=== PATIENT | male | born 1940 | race Caucasian/White ===

== ENCOUNTER 2020-03-31 13:23 | Inpatient (IN) | payer OTHER, MEDICARE, SELFPAY ==
[2020-03-31] VITALS (11 sets, daily range): BP systolic 76–123; BP diastolic 44–66; PULSE 69–90; RESP 15–32; TEMP 36.3–36.8; O2SAT 90–98; BMI 23.7
--- NOTE | 2020-03-31 13:34 | XRR_ITS ---
PROCEDURE INFORMATION: Exam: XR Chest, 1 View Exam date and time: 03/31/2020 1:36 PM Age: 79 years old Clinical indication: Shortness of breath; Dyspnea TECHNIQUE: Imaging protocol: XR of the chest Views: 1 view. COMPARISON: No relevant prior studies available. FINDINGS: Lungs: At least bibasilar compressive atelectasis. Basilar pneumonia cannot be excluded nor can a lung mass. No central pulmonary vascular congestion. The upper lung zones are clear. Pleural space: Asymmetric pleural effusions, larger on the left. Heart/Mediastinum: The cardiac silhouette is partially silhouetted out, but the heart is felt not to be enlarged. Vasculature: The thoracic aorta is tortuous and/or ectatic. Bones/joints: Multilevel disc degeneration in the thoracic spine. Bilateral glenohumeral and acromioclavicular joint degeneration. Suspect chronic right rotator cuff tear. XR/XR chest 1V portable [id number] IMPRESSION: Asymmetric pleural effusions with at least bibasilar compressive atelectasis.
--- NOTE | 2020-03-31 13:34 | ECG_ITS ---
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
--- NOTE | 2020-03-31 13:44 | W.ED.SOB ---
HPI - SOB/Dyspnea General: Chief Complaint: Shortness of Breath/Dyspnea Stated Complaint: BP 80/40, Low O2 Time Seen by Provider: 03/31/20 13:24 History of Present Illness: HPI Narrative: Patient is a 79-year-old male who comes in with chief complaint of shortness of breath. He said he is been feeling like this all summer. It got this bad over the past 2 weeks. He is also had swelling in his legs for about 2 weeks. He denies chest pain. He does get lightheaded and fatigued when he moves around. He cannot lay flat at night to sleep. He has been told that he had CHF in the past. He takes Lasix but says it does not make him pee like he normally should. He denies fever but says he has a chronic cough because he likes cigarettes When family arrived I got more history. The patient had gone to the ER at [place] on Thursday because of the same symptoms. Apparently at that time he was diagnosed with A. fib and put on apixaban and Cardizem. His Lasix dose was increased. His family member said he looked just as bad when he came out as when he went in. He had an appointment with his primary care doctor on Thursday and they did not do anything either. His family is concerned that he continues to get worse in terms of weakness and difficulty breathing. That is why they brought him into the ER today. MD elicited complaint: shortness of breath Pertinent past history: COPD and congestive heart failure Associated symptoms: Reports orthopnea; Deny abdominal pain, chest pain, fever(s), nausea or vomiting Review of Systems General: Reports: 10 or more systems reviewed and unremarkable except in HPI and below Const: Denies: fever(s), chills, fatigue or malaise Eyes: Denies: change in vision ENMT: Denies: odynophagia Card: Reports: swelling of feet/ankles and orthopnea; Denies: chest pain Resp: Reports: dyspnea; Denies: productive cough or non-productive cough GI: Denies: abdominal pain, nausea or vomiting : Denies: flank pain Musc: Denies: neck pain or back pain Skin/Breast: Denies: rash Neuro: Denies: headache(s), numbness in extremities or weakness in extremities Jason/Lymph: Denies: easy bruising or easy bleeding PFSH ED PFSH: Medical History (Updated 04/02/20 @ 15:59 by Mark Raymond MD) Atrial fibrillation BPH (benign prostatic hyperplasia) Congestive heart failure COPD (chronic obstructive pulmonary disease) Hypertension Surgical History (Updated 03/31/20 @ 17:41 by Mark Raymond MD) No pertinent past surgical history Family History (Updated 03/31/20 @ 17:42 by Mark Raymond MD) Mother Stroke Father Old age Social History (Updated 03/31/20 @ 17:42 by Mark Raymond MD) Smoking and tobacco status: current every day smoker Alcohol intake: never Substance/Drug Use: never Physical Exam Const: COMMON NORMALS: patient oriented x3, no limitations and alert GENERAL APPEARANCE: cooperative HENMT: HEAD & SCALP: normal to inspection FACE & SINUS: normal facial exam Eye: GENERAL EYE: appearance normal, both eyes and all related structures Neck/C-Spine: COMMON NORMALS: supple, no meningeal signs and no JVD Chest: COMMONS NORMALS: normal inspection of the chest Resp: EFFORT & INSPECTION: Yes tachypneic, Yes respiratory distress and Yes uses accessory muscles AUSCULTATION: rales and rhonchi Cardio: COMMON NORMALS: no JVD and No murmurs present (Cardio) RHYTHM: abnormal rhythm irregularly irregular GI: COMMON NORMALS: Normal to inspection, nondistended, normoactive bowel sounds present, Soft to palpation and non-tender INSPECTION: Yes normal to inspection AUSCULTATION: Yes normoactive bowel sounds PALPATION: Yes Soft to palpation Back/Pelvis: COMMON NORMALS: thoracic and lumbar spine normal to inspection Extremity: NARRATIVE EXTREMITY EXAM: 3+ pitting edema from the mid calves down bilaterally Neuro: COMMON NORMALS: patient oriented x3, moves all extremities, no focal motor deficits and no sensory deficits noted SENSORIUM/ORIENTATION: Yes alert MENINGEAL SIGNS: Yes no meningeal signs Psych: COMMON NORMALS: mental status grossly normal, cooperative and normal affect Skin: COMMON NORMALS: no rashes or lesions noted and turgor normal GENERAL SKIN EXAM: no rashes or lesions noted and turgor normal Course ED course: Patient will be admitted for worsening heart failure. He is also hypotensive and this limited the diuresis that could be done initially. Actually gave him some fluids and some calcium to try to bring his blood pressure up. That did improve and his blood pressure was around 110 at the time of admission. An echo was ordered as well. He will be admitted for further management as an inpatient. Vital Signs: Vital signs: Vital Signs Temperature 97.4 F L 04/02/20 23:16 Pulse Rate 78 04/02/20 23:16 Respiratory Rate 23 H 04/02/20 23:16 Blood Pressure 93/61 04/02/20 23:16 Pulse Oximetry 92 04/02/20 23:16 MDM - SOB/Dyspnea Lab Data: Labs: Lab Results 03/31/20 03/31/20 03/31/20 Range/Units 13:38 13:38 13:38 WBC 4.0 (4.0-10.0) 10^3/ uL RBC 3.95 L (4.1-5.3) 10^6/u L Hgb 14.0 (11.7-16.6) g/dL Hct 40.6 L (42.0-52.0) % MCV 102.8 H (80-94) fL MCH 35.4 H (28.0-34.0) pg MCHC 34.5 (30.0-36.0) g/dL RDW 12.9 (12.1-15.1) % Plt Count 96 L (130-400) 10^3/c mm MPV 13.0 H (7.4-10.4) fL Neut % (Auto) 55.9 % Lymph % (Auto) 22.5 % [place] % (Auto) 17.5 % Eos % (Auto) 3.3 % Baso % (Auto) 0.5 % Neut # (Auto) 2.21 (1.8-7.7) 10^3/u L Lymph # (Auto) 0.9 (0.8-4.8) 10^3/u L [place] # (Auto) 0.7 (0.2-0.9) 10^3/u L Eos # (Auto) 0.1 (0.0-0.8) 10^3/u L Baso # (Auto) 0.0 (0.0-0.1) 10^3/u L Nucleated RBC % (a uto) 0 % Nucleated RBCs # 0.0 /100WBC Sodium 130 L (136-145) mmol/L Potassium 3.4 L (3.5-5.1) mmol/L Chloride 90 L (98-107) mmol/L Carbon Dioxide 28 (22-29) mmol/L Anion Gap 15.4 (5-19) BUN 12 (8-23) mg/dL Creatinine 0.7 (0.7-1.2) mg/dL GFR Calculation Not Reportable Glucose 103 (65-115) mg/dL POC Glucose (70-110) mg/dL Calculated Osmolal ity 270 L (285-295) mOsm/k g Lactic Acid 1.9 (0.5-2.2) mmol/L Calcium 9.1 (8.5-10.5) mg/dL Magnesium 1.8 (1.7-2.3) mg/dL Total Bilirubin 1.0 (0.15-1.2) mg/dL AST 13 (0-40) U/L ALT 12 (0-41) U/L Alkaline Phosphata se 132 H (40-130) IU/L Troponin T Baselin e (0-15) ng/L Troponin T 120 Min [place] (0-15) ng/L Delta Troponin T (0-10) ABS# NT-Pro-B Natriuret Pep 1128 H (0-450) pg/mL Total Protein 5.9 L (6.6-8.7) g/dL Albumin 3.7 (3.5-5.2) g/dL Globulin 2.2 (1.3-4.6) g/dL Urine Color (Yellow) Urine Appearance (CLEAR) Urine pH (5-7) Ur Specific Gravit y (1.005-1.030) Urine Protein (Negative) Urine Glucose (UA) (Normal) Urine Ketones (Negative) Urine Blood (Negative) Urine Nitrate (Negative) Urine Bilirubin (Negative) Urine Urobilinogen (Negative) mg/dL Ur Leukocyte Arleen ase (Negative) Ur Eosinophil Smea r Urine Eosinophils Ur Random Sodium mmol/L Ur Random Potassiu m mmol/L Ur Random Chloride mmol/L Ur Random Urea Nit rogn mg/dL Urine Creatinine (39-259) mg/dL 03/31/20 03/31/20 03/31/20 Range/Units 13:38 13:49 14:38 WBC (4.0-10.0) 10^3/ uL RBC (4.1-5.3) 10^6/u L Hgb (11.7-16.6) g/dL Hct (42.0-52.0) % MCV (80-94) fL MCH (28.0-34.0) pg MCHC (30.0-36.0) g/dL RDW (12.1-15.1) % Plt Count (130-400) 10^3/c mm MPV (7.4-10.4) fL Neut % (Auto) % Lymph % (Auto) % [place] % (Auto) % Eos % (Auto) % Baso % (Auto) % Neut # (Auto) (1.8-7.7) 10^3/u L Lymph # (Auto) (0.8-4.8) 10^3/u L [place] # (Auto) (0.2-0.9) 10^3/u L Eos # (Auto) (0.0-0.8) 10^3/u L Baso # (Auto) (0.0-0.1) 10^3/u L Nucleated RBC % (a uto) % Nucleated RBCs # /100WBC Sodium (136-145) mmol/L Potassium (3.5-5.1) mmol/L Chloride (98-107) mmol/L Carbon Dioxide (22-29) mmol/L Anion Gap (5-19) BUN (8-23) mg/dL Creatinine (0.7-1.2) mg/dL GFR Calculation Glucose (65-115) mg/dL POC Glucose 111 (70-110) mg/dL Calculated Osmolal ity (285-295) mOsm/k g Lactic Acid (0.5-2.2) mmol/L Calcium (8.5-10.5) mg/dL Magnesium (1.7-2.3) mg/dL Total Bilirubin (0.15-1.2) mg/dL AST (0-40) U/L ALT (0-41) U/L Alkaline Phosphata se (40-130) IU/L Troponin T Baselin e 20 H (0-15) ng/L Troponin T 120 Min [place] (0-15) ng/L Delta Troponin T (0-10) ABS# NT-Pro-B Natriuret Pep (0-450) pg/mL Total Protein (6.6-8.7) g/dL Albumin (3.5-5.2) g/dL Globulin (1.3-4.6) g/dL Urine Color Yellow (Yellow) Urine Appearance Clear (CLEAR) Urine pH 7 (5-7) Ur Specific Gravit y 1.010 (1.005-1.030) Urine Protein Neg (Negative) Urine Glucose (UA) Norm (Normal) Urine Ketones Negative (Negative) Urine Blood Neg (Negative) Urine Nitrate Negative (Negative) Urine Bilirubin Neg (Negative) Urine Urobilinogen 1 H (Negative) mg/dL Ur Leukocyte Arleen ase Negative (Negative) Ur Eosinophil Smea r Urine Eosinophils Ur Random Sodium mmol/L Ur Random Potassiu m mmol/L Ur Random Chloride mmol/L Ur Random Urea Nit rogn mg/dL Urine Creatinine (39-259) mg/dL 03/31/20 03/31/20 03/31/20 Range/Units 14:38 14:38 15:22 WBC (4.0-10.0) 10^3/ uL RBC (4.1-5.3) 10^6/u L Hgb (11.7-16.6) g/dL Hct (42.0-52.0) % MCV (80-94) fL MCH (28.0-34.0) pg MCHC (30.0-36.0) g/dL RDW (12.1-15.1) % Plt Count (130-400) 10^3/c mm MPV (7.4-10.4) fL Neut % (Auto) % Lymph % (Auto) % [place] % (Auto) % Eos % (Auto) % Baso % (Auto) % Neut # (Auto) (1.8-7.7) 10^3/u L Lymph # (Auto) (0.8-4.8) 10^3/u L [place] # (Auto) (0.2-0.9) 10^3/u L Eos # (Auto) (0.0-0.8) 10^3/u L Baso # (Auto) (0.0-0.1) 10^3/u L Nucleated RBC % (a uto) % Nucleated RBCs # /100WBC Sodium (136-145) mmol/L Potassium (3.5-5.1) mmol/L Chloride (98-107) mmol/L Carbon Dioxide (22-29) mmol/L Anion Gap (5-19) BUN (8-23) mg/dL Creatinine (0.7-1.2) mg/dL GFR Calculation Glucose (65-115) mg/dL POC Glucose (70-110) mg/dL Calculated Osmolal ity (285-295) mOsm/k g Lactic Acid (0.5-2.2) mmol/L Calcium (8.5-10.5) mg/dL Magnesium (1.7-2.3) mg/dL Total Bilirubin (0.15-1.2) mg/dL AST (0-40) U/L ALT (0-41) U/L Alkaline Phosphata se (40-130) IU/L Troponin T Baselin e (0-15) ng/L Troponin T 120 Min [place] 14.55 (0-15) ng/L Delta Troponin T -5.45 L (0-10) ABS# NT-Pro-B Natriuret Pep (0-450) pg/mL Total Protein (6.6-8.7) g/dL Albumin (3.5-5.2) g/dL Globulin (1.3-4.6) g/dL Urine Color (Yellow) Urine Appearance (CLEAR) Urine pH (5-7) Ur Specific Gravit y (1.005-1.030) Urine Protein (Negative) Urine Glucose (UA) (Normal) Urine Ketones (Negative) Urine Blood (Negative) Urine Nitrate (Negative) Urine Bilirubin (Negative) Urine Urobilinogen (Negative) mg/dL Ur Leukocyte Arleen ase (Negative) Ur Eosinophil Smea r Cancelled Urine Eosinophils Cancelled Ur Random Sodium 54 mmol/L Ur Random Potassiu m 38 mmol/L Ur Random Chloride 54 mmol/L Ur Random Urea Nit rogn 456 mg/dL Urine Creatinine 75 (39-259) mg/dL Discharge Plan Discharge Admit Provider: Mark Raymond Condition: Stable Coding Level of Care Code ED Legger Press Operator for Chg Fwd Exam Comprehensive
[2020-03-31 13:53] LABS: Glucose Point of Care 111 mg/dL (70-110)
[2020-03-31 14:25] LABS: Basophils % 0.5 %; Eosinophils # 0.1 10^3/uL (0.0-0.8); Eosinophils % 3.3 %; Hematocrit 40.6 % (42.0-52.0); Lymphocytes # 0.9 10^3/uL (0.8-4.8); Lymphocytes % 22.5 %; Mean Corpuscular HGB Conc 34.5 g/dL (30.0-36.0); Mean Corpuscular Hemoglobin 35.4 pg (28.0-34.0); Mean Corpuscular Volume 102.8 fL (80-94); Monocytes # 0.7 10^3/uL (0.2-0.9); Monocytes % 17.5 %; Neutrophils # 2.21 10^3/uL (1.8-7.7); Neutrophils % 55.9 %; Nucleated Red Blood Cells % 0 %; Platelet Count 96 10^3/cmm (130-400); Red Blood Count 3.95 10^6/uL (4.1-5.3); Red Cell Distribution Width 12.9 % (12.1-15.1)
[2020-03-31 14:54] LABS: Troponin(5th) Baseline 20 ng/L (0-15)
[2020-03-31 14:54] LABS: Add Urine Microscopic? NO
[2020-03-31 14:55] LABS: Lactic Sepsis W/Reflex 1.9 mmol/L (0.5-2.2)
[2020-03-31 14:59] LABS: Alanine Aminotransferase 12 U/L (0-41); Albumin Level 3.7 g/dL (3.5-5.2); Alkaline Phosphatase 132 IU/L (40-130); Anion Gap 15.4 (5-19); Aspartate Amino Transferase 13 U/L (0-40); Blood Urea Nitrogen 12 mg/dL (8-23); Calcium 9.1 mg/dL (8.5-10.5); Carbon Dioxide 28 mmol/L (22-29); Chloride 90 mmol/L (98-107); Globulin 2.2 g/dL (1.3-4.6); Glucose 103 mg/dL (65-115); Magnesium 1.8 mg/dL (1.7-2.3); NT Pro B Type Natriuretic Pept 1128 pg/mL (0-450); Osmolality Calculated 270 mOsm/kg (285-295); Potassium 3.4 mmol/L (3.5-5.1); Sodium 130 mmol/L (136-145); Total Protein 5.9 g/dL (6.6-8.7)
[2020-03-31 15:12] LABS: Bilirubin Urine Neg (Negative); Blood Urine Neg (Negative); Glucose Urine UA Norm (Normal); Ketones Urine Negative (Negative); Leukocyte Esterase Urine Negative (Negative); Nitrate Urine Negative (Negative); Protein Urine Neg (Negative); Urine Appearance Clear (CLEAR); Urine Color Yellow (Yellow); Urobilinogen Urine 1 mg/dL (Negative); pH Urine 7 (5-7)
--- NOTE | 2020-03-31 15:23 | PC.NURSE ---
2hr EKG done, given to physician, 2hr troponin drawn, labeled and sent to lab.
--- NOTE | 2020-03-31 15:34 | ECG_ITS ---
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1940 Requested By: Dunia Stanton Order Number: [id number] Reading MD: SHAY ZHANG Measurements Intervals [place] Rate: 82 P: [place]: QRS: 35 QRSD: 93 T: 36 QT: 395 QTc: 464 Interpretive Statements ATRIAL FIBRILLATION WITH ABERRANT CONDUCTION OR VENTRICULAR PREMATURE COMPLEXES ABNORMAL RHYTHM ECG Compared to ECG 03/31/2020 13:43:14 Ventricular premature complex(es) now present Aberrant conduction of supraventricular beat(s) now present Electronically Signed On 03-31-2020 18:14:32 ENVIRONMENTAL HEALTH OFFICER by SHAY ZHANG [id number]
[2020-03-31] MEDS: sodium chloride 0.9% 500 ML 999 ML IV (15:56)
[2020-03-31 16:04] LABS: Troponin 5 2HR 14.55 ng/L (0-15)
[2020-03-31] MEDS: calcium gluconate 0.1 gm/mL 10% SDV 10mL 1 GM IVP (16:08)
[2020-03-31 16:18] LABS: Troponin 5 2HR Delta -5.45 ABS# (0-10)
--- NOTE | 2020-03-31 17:34 | CTR_ITS ---
PROCEDURE INFORMATION: Exam: CT Angiography Chest With Contrast Exam date and time: 03/31/2020 6:15 PM Age: 79 years old Clinical indication: Dyspnea; Additional info: SOB TECHNIQUE: Imaging protocol: Computed tomographic angiography of the chest with intravenous contrast. 3D rendering (Not supervised by radiologist): MIP and/or 3D reconstructed images were created by the technologist. Radiation optimization: All CT scans at this facility use at least one of these dose optimization techniques: automated exposure control; mA and/or kV adjustment per patient size (includes targeted exams where dose is matched to clinical indication); or iterative reconstruction. Contrast material: OMNI 350; Contrast volume: 95 ml; Contrast route: INTRAVENOUS (IV); COMPARISON: CR (CHEST, ) 03/31/2020 1:46 PM RADIATION DOSE METRICS: Total DLP (mGy-cm): 630.29 FINDINGS: Pulmonary arteries: Normal. No pulmonary emboli. Aorta: Unremarkable. No aortic aneurysm. No aortic dissection. Lungs: There are centrilobular emphysematous changes in the bilateral lungs. There are pulmonary parenchymal calcifications consistent with remote granulomatous organism exposure. Pleural space: There are bilateral pleural effusions with underlying compressive atelectasis or infiltrate. There is prominent consolidation of the left lower lobe with only a small amount of residual normal pulmonary parenchyma. Heart: Multivessel atherosclerotic disease which involves the coronary arteries. Lymph nodes: Unremarkable. No enlarged lymph nodes. Bones/joints: Unremarkable. No acute fracture. Soft tissues: Unremarkable. CT/CT angio chest PE protcl [id number] IMPRESSION: 1. There are bilateral pleural effusions with underlying compressive atelectasis or infiltrate.There is prominent consolidation of the left lower lobe with only a small amount of residual normal pulmonary parenchyma. Any underlying pathology such as neoplasm cannot be excluded. 2. There are centrilobular emphysematous changes in the bilateral lungs. 3. No evidence for pulmonary embolus. Radiation Dose CTDIVOL = (mGy): DLP = 630.29 (mGy-cm)
--- NOTE | 2020-03-31 17:35 | P.HP_ITS ---
Providers/Chief Complaint Chief Complaint: BP 80/40, Low O2 History of Present Illness Christian Platt is a 79 year old male current smoker, past medical history of COPD, CHF, bilateral extreme edema, thoracic aortic aneurysm, recent history of atrial fibrillation, on Eliquis, BPH, no history of CAD, no history of strokes, no history of carotid artery stenosis, had a stress test many years ago which was negative, who presents to [facility] due to a 2-week history of shortness of breath. Patient tells me that roughly 2 weeks ago, he attended a , was feeling short of breath, developed bilateral extremity edema, he sees Dr. Lee and well, he is on Lasix 40 daily, tells me that he became more short of breath with minimal exertion, short of breath while getting up and using the bathroom, developing severe bilateral lower extremity edema, no lightheadedness, no dizziness, no chest pain, no known exposure to COVID-19, no fevers, chills. Patient tells me that he was diagnosed with heart failure for many years ago, is on Lasix, denies any history of cardiac catheterization, no history of CAD, no history of chest pain. Recently he went to [place] ER, on Thursday, for shortness of breath, his sister is at bedside, she tells me that all they did for him was told him he had atrial fibrillation, put him on Eliquis, increased his Lasix, and sent him home. Unfortunately he continues to have shortness of breath and lower extremity edema Review of Systems Const: Denies: fever(s), chills, fatigue or malaise Eyes: Denies: change in vision or blurry vision ENMT: Denies: nasal congestion Card: Reports: edema; Denies: chest pain, palpitations or irregular heart rhythm Resp: Reports: dyspnea; Denies: productive cough, non-productive cough or wheezing GI: Denies: abdominal pain, nausea, vomiting, hematemesis, diarrhea, constipation, hematochezia or melena : Denies: flank pain, difficulty urinating, dysuria or urinary frequency Musc: Denies: neck pain or back pain Skin/Breast: Denies: rash Neuro: Denies: headache(s), dizziness or vertigo Psych: Denies: anxiety or depression Endo: Denies: polyuria or polydipsia Medications/Allergies Home Medications Medication Instructions Recorded Confirmed Last Taken Type albuterol sulfate [ProAir HFA] 1 inh INHALATION QID PRN 03/31/20 03/31/20 Unknown History amlodipine 10 mg PO DAILY 03/31/20 03/31/20 03/31/20 History apixaban [Eliquis] 5 mg PO BID 03/31/20 03/31/20 03/31/20 History aspirin 81 mg PO DAILY 03/31/20 03/31/20 03/31/20 History budesonide-formoterol [Symbicort] 2 puff INHALATION BID 03/31/20 03/31/20 03/31/20 History cholecalciferol (vitamin D3) 25 mcg PO DAILY 03/31/20 03/31/20 03/31/20 History [Vitamin D3] diltiazem HCl [Cartia XT] 120 mg PO DAILY 03/31/20 03/31/20 03/31/20 History furosemide 40 mg PO BID 03/31/20 03/31/20 03/31/20 History losartan 100 mg PO DAILY 03/31/20 03/31/20 03/31/20 History metoprolol tartrate 50 mg PO BID 03/31/20 03/31/20 03/31/20 History potassium chloride 10 meq PO DAILY 03/31/20 03/31/20 03/30/20 History terazosin 2 mg PO BEDTIME 03/31/20 03/31/20 03/30/20 History tiotropium bromide [Spiriva with 1 cap INHALATION DAILY 03/31/20 03/31/20 03/31/20 History HandiHaler] Allergies Allergy/AdvReac Type Severity Reaction Status Date / Time No Known Allergies Allergy Verified 03/31/20 13:34 PFSH Acute PFSH: Medical History (Updated 03/31/20 @ 17:46 by Mark Raymond MD) Atrial fibrillation BPH (benign prostatic hyperplasia) Congestive heart failure COPD (chronic obstructive pulmonary disease) Hypertension Surgical History (Updated 03/31/20 @ 17:41 by Mark Raymond MD) No pertinent past surgical history Family History (Updated 03/31/20 @ 17:42 by Mark Raymond MD) Mother Stroke Father Old age Social History (Updated 03/31/20 @ 17:42 by Mark Raymond MD) Smoking and tobacco status: current every day smoker Alcohol intake: never Substance/Drug Use: never Vitals/I&O/Wt Last Vital Signs Temp 98.2 F 03/31/20 13:30 Pulse 79 03/31/20 15:44 Resp 15 03/31/20 15:44 BP 83/59 03/31/20 15:44 Pulse Ox 95 03/31/20 15:44 Weight last 48 hrs Weight 79.379 kg Physical Exam Const: COMMON NORMALS: no acute distress and patient oriented x3 GENERAL APPEARANCE: cooperative and comfortable HENMT: COMMON NORMALS: normocephalic HEAD & SCALP: normocephalic Eye: COMMON NORMALS: Equal, round and reactive pupils present, EOMs intact b ilaterally and no papilledema GENERAL EYE: appearance normal, both eyes and all related structures PUPIL: Yes Equal, round and reactive pupils present DIRECT OPHTHALMOSCOPY: Yes no papilledema Neck/C-Spine: COMMON NORMALS: full ROM, no lymphadenopathy, no JVD and Thyroid normal THYROID: Thyroid normal Lymph: LYMPHATIC: no lymphadenopathy noted Resp: COMMON NORMALS: normal respiratory effort, No retractions, No use of accessory muscles and clear to auscultation bilaterally AUSCULTATION: crackles Cardio: COMMON NORMALS: no JVD, regular rate, regular rhythm, S1 normal heart sound present, S2 normal heart sound present, No gallops present (Cardio), No clicks present (Cardio) and No murmurs present (Cardio) RATE: regular rate RHYTHM: regular rhythm HEART SOUNDS: S1 normal heart sound present and S2 normal heart sound present GI: COMMON NORMALS: Normal to inspection, nondistended, normoactive bowel sounds present, Soft to palpation, non-tender and No hepatosplenomegaly present PALPATION: Yes Soft to palpation and Yes No hepatosplenomegaly present Extremity: COMMON NORMALS: normal to inspection, full ROM and no pedal edema Neuro: COMMON NORMALS: patient oriented x3, CN's II-XII intact bilaterally, moves all extremities and no focal motor deficits Psych: COMMON NORMALS: mental status grossly normal, Normal thought process present and cooperative THOUGHT PROCESS: Normal thought process present Data : 03/31/20 13:38 03/31/20 13:38 A&P Assessment and plan (1) Acute respiratory failure with hypoxia: Secondary to CHF exacerbation, some degree of COPD exacerbation Plan: -Admit to cardiac stepdown unit -We will do a CT angiogram of the chest to evaluate for pulmonary emboli -Cardiac echocardiogram -Lasix 40 mg IV twice daily -Potassium replacement -Strict fluid intake, I's and O's, 1500 cc fluid restriction -Monitor vitals closely, monitor respiratory status -BiPAP as needed -Full code -Lovenox for DVT prophylaxis Status: Acute (2) COPD (chronic obstructive pulmonary disease): DuoNeb treatments, Solu-Medrol 40 q. 12 Status: Acute (3) BPH (benign prostatic hyperplasia): Continue home medication Status: Acute (4) Hypertension: Hold blood pressure medications Status: Acute (5) Atrial fibrillation: Continue Cardizem Status: Acute (6) Congestive heart failure: Status: Acute (7) Bilateral edema of lower extremity: Status: Acute (8) Thrombocytopenia: Etiology unclear, right upper quadrant ultrasound, hep panel, ferritin Status: Acute (9) Hyponatremia: Likely secondary dehydration Status: Acute (10) Low blood pressure: Likely secondary to blood pressure medications, overdiuresis Status: Acute Attestations Medical Necessity Statement*: Patient requires hospitalization, inpatient, greater than 2 midnights, for acute respiratory failure with hypoxia secondary to CHF Coding Level of Care Code Acute Traveling Engineer for [facility] Diagnoses Acute respiratory failure with hypoxia J96.01 COPD (chronic obstructive pulmonary disease) J44.9 BPH (benign prostatic hyperplasia) N40.0 Hypertension I10 Atrial fibrillation I48.91 Congestive heart failure I50.9 Bilateral edema of lower extremity R60.0 Thrombocytopenia D69.6 Hyponatremia E87.1 Low blood pressure I95.9
[2020-03-31] MEDS: iohexol 350 mg/mL 100 mL Btl IV (18:22)
--- NOTE | 2020-03-31 19:34 | ECG_ITS ---
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
[2020-03-31] MEDS: metoprolol tartrate 50 mg Tablet PO (19:40)
[2020-03-31] MEDS: apixaban 5 mg Tablet PO (19:40)
[2020-03-31] MEDS: potassium chloride ER 20 mEq Tablet 40 MEQ PO (19:40)
[2020-03-31] MEDS: azithromycin 500 MG in sodium chloride 0.9% 250 ML 250 MG IV (19:46)
[2020-03-31 19:59] LABS: Troponin 5 6HR 17.56 ng/L (0-15)
[2020-03-31 20:01] LABS: Troponin 5 6HR Delta -2.44 ng/L (0-12)
[2020-03-31 20:02] LABS: Influenza A by IFA Negative (Negative); Influenza B by IFA Negative (Negative); SARS Covid-2 Antigen Negative (Negative)
[2020-03-31 20:05] LABS: Hepatitis A Antibody IgM Non-Reactive (Nonreactive); Hepatitis B Core IgM Non-Reactive (Nonreactive); Hepatitis B Surface Antigen Non-Reactive (Nonreactive); Hepatitis C Virus Antibody Non-Reactive (Nonreactive)
[2020-03-31 20:37] LABS: Glucose Point of Care 116 mg/dL (70-110)
[2020-03-31] MEDS: FUROsemide 10 mg/mL SDV 4mL 40 MG IVP (20:53)
[2020-03-31] MEDS: cefTRIAXone 1,000 MG in sodium chloride 0.9% (plus) 50 ML 100 MG IV (20:54)
[2020-03-31] MEDS: potassium chloride ER 10 mEq Tablet PO (20:54)
[2020-03-31] MEDS: ipratropium-albuterol 3 mL Neb INHALATION (21:07)
[2020-03-31 21:30] LABS: Erythrocyte Sedimentation Rate 9 mm/hr (0-10)
[2020-03-31 23:39] LABS: Procalcitonin 0.06 ng/mL (0-0.5)
[2020-03-31 23:50] LABS: Ferritin 314 ng/mL (30-400)
[2020-04-01] VITALS (14 sets, daily range): BP systolic 92–120; BP diastolic 55–70; PULSE 89–130; RESP 14–23; TEMP 35.9–36.8; O2SAT 91–100
[2020-04-01 03:59] LABS: Basophils % 0.4 %; Hematocrit 38.2 % (42.0-52.0); Hemoglobin 12.8 g/dL (11.7-16.6); Lymphocytes # 0.3 10^3/uL (0.8-4.8); Lymphocytes % 12.6 %; Mean Corpuscular HGB Conc 33.5 g/dL (30.0-36.0); Mean Corpuscular Hemoglobin 34.9 pg (28.0-34.0); Mean Corpuscular Volume 104.1 fL (80-94); Mean Platelet Volume 12.8 fL (7.4-10.4); Monocytes # 0.1 10^3/uL (0.2-0.9); Monocytes % 3.3 %; Neutrophils # 1.99 10^3/uL (1.8-7.7); Neutrophils % 83.3 %; Nucleated Red Blood Cells % 0 %; Platelet Count 92 10^3/cmm (130-400); Red Blood Count 3.67 10^6/uL (4.1-5.3); White Blood Count 2.4 10^3/uL (4.0-10.0)
[2020-04-01 04:08] LABS: INR 1.24 (0.8-1.2)
[2020-04-01 04:26] LABS: Alanine Aminotransferase 12 U/L (0-41); Albumin Level 3.5 g/dL (3.5-5.2); Alkaline Phosphatase 125 IU/L (40-130); Anion Gap 14.2 (5-19); Aspartate Amino Transferase 14 U/L (0-40); Blood Urea Nitrogen 14 mg/dL (8-23); Calcium 9.2 mg/dL (8.5-10.5); Carbon Dioxide 27 mmol/L (22-29); Chloride 92 mmol/L (98-107); Globulin 2.5 g/dL (1.3-4.6); Glucose 146 mg/dL (65-115); Magnesium 1.8 mg/dL (1.7-2.3); Osmolality Calculated 271 mOsm/kg (285-295); Phosphorus 4.3 mg/dL (2.5-4.5); Potassium 4.2 mmol/L (3.5-5.1); Sodium 129 mmol/L (136-145); Total Bilirubin 0.7 mg/dL (0.15-1.2)
[2020-04-01 04:34] LABS: NT Pro B Type Natriuretic Pept 990 pg/mL (0-450); Procalcitonin 0.07 ng/mL (0-0.5)
--- NOTE | 2020-04-01 05:48 | PC.NURSE ---
PT HAD A LITTLE TROUBLE BREATHING AND RT TURNED UP O2 TO 10L. PT HASN'T HAD ANY OTHER ISSUES SINCE. O2 SAT IS AT 99%. WILL CONTINUE TO MONITOR.
[2020-04-01 07:23] LABS: Glucose Point of Care 134 mg/dL (70-110)
--- NOTE | 2020-04-01 08:31 | PC.NURSE ---
PER DR. ORNELAS, ORDERED RESUSCITATION STATUS, DIET AND FLUID RESTRICTION.
[2020-04-01 09:17] LABS: Potassium, Radom Urine 38 mmol/L; Urine Creatinine 75 mg/dL (39-259); Urine Random Chloride 54 mmol/L; Urine Random Sodium 54 mmol/L
[2020-04-01] MEDS: losartan 50 mg Tablet 100 MG PO (09:23)
[2020-04-01] MEDS: dilTIAZem ER (24HR) 120 mg Capsule PO (09:23)
[2020-04-01] MEDS: metoprolol tartrate 50 mg Tablet PO (09:23)
[2020-04-01] MEDS: ipratropium-albuterol 3 mL Neb INHALATION ×3 (09:32→20:29)
[2020-04-01 09:48] LABS: Folate Level 6.3 ng/mL (4.5-32.2)
[2020-04-01 09:49] LABS: Vitamin B12 369 pg/mL (232-1245)
[2020-04-01 11:01] LABS: Urea Nitrogen,Urine Random 456 mg/dL
[2020-04-01 11:02] LABS: LAB Peripheral Smear Sent for Review
--- NOTE | 2020-04-01 12:44 | PC.NURSE ---
PATIENT AMBULATED APPROXIMATELY 50 FEET WITH NURSING ASSISTANCE. TOLERATED FAIRLY, HOWEVER BECAME MODERATELY SHORT OF BREATH. PATIENT UP TO CHAIR AT BEDSIDE NOW. 02 SATS MID 90'S ON 2LNC, HEART RATE STILL A FIB WITH CONTROLLED RATE IN THE 80'S-90'S.
--- NOTE | 2020-04-01 12:53 | P.PN_ITS ---
Subjective Subjective: Interval history: This morning patient was examined, he was placed on 6 L, I suspect he has a component of sleep apnea, we wean this down to 2 to 3 L, blood pressures are a bit soft, states that his breathing has improved, still has bilateral extremity edema, no nausea, no vomiting, no chest pain Vitals/I&O/Wt Last Vital Signs Temp 97.2 F L 04/01/20 10:51 Pulse 102 H 04/01/20 10:51 Resp 22 H 04/01/20 10:51 BP 97/69 04/01/20 10:51 Pulse Ox 94 04/01/20 10:51 03/31/20 04/01/20 04/01/20 22:59 06:59 14:59 Intake Total 300 / 300 1440 / 1740 240 / 240 Output Total 200 / 200 400 / 400 Balance 100 / 100 1440 / 1540 -160 / -160 Weight last 48 hrs Weight 79.379 kg Physical Exam Const: COMMON NORMALS: no acute distress and patient oriented x3 HENMT: COMMON NORMALS: normocephalic HEAD & SCALP: normocephalic Neck/C-Spine: COMMON NORMALS: no JVD Resp: COMMON NORMALS: normal respiratory effort, No retractions and No use of accessory muscles AUSCULTATION: breath sounds absent bilateral Cardio: COMMON NORMALS: no JVD, regular rate, regular rhythm, S1 normal heart sound present and S2 normal heart sound present RATE: regular rate RHYTHM: regular rhythm HEART SOUNDS: S1 normal heart sound present and S2 normal heart sound present GI: COMMON NORMALS: Normal to inspection, nondistended, normoactive bowel sounds present, Soft to palpation, non-tender, No hepatosplenomegaly present, no masses and no bruits PALPATION: Yes Soft to palpation and Yes No hepatosplenomegaly present Extremity: COMMON NORMALS: capillary refill normal, no clubbing, cyanosis or edema, no calf tenderness and no pedal edema Neuro: COMMON NORMALS: patient oriented x3 Psych: COMMON NORMALS: mental status grossly normal Data : 04/01/20 03:34 04/01/20 03:34 Micro: Microbiology 03/31/20 19:18 Blood Culture - Preliminary Blood SPECIMEN COLLECTED 03/31/20 13:38 Blood Culture - Preliminary Blood SPECIMEN COLLECTED A&P Assessment and plan (1) Acute respiratory failure with hypoxia: Secondary to CHF exacerbation, some degree of COPD exacerbation -CTA of the chest showed: 1. There are bilateral pleural effusions with underlying compressive atelectasis or infiltrate.There is prominent consolidation of the left lower lobe with only a small amount of residual normal pulmonary parenchyma. Any underlying pathology such as neoplasm cannot be excluded. 2. There are centrilobular emphysematous changes in the bilateral lungs. 3. No evidence for pulmonary embolus. Plan: -Admit to cardiac stepdown unit -Cardiac echocardiogram pending -Lasix 40 mg IV once daily as he is hyponatremic, sodium 129 -CT angiogram shows significant bilateral pleural effusions, patient will likely require a bilateral thoracocentesis, hold Eliquis, hold aspirin -Potassium replacement -Strict fluid intake, I's and O's, 1500 cc fluid restriction -Monitor vitals closely, monitor respiratory status -BiPAP as needed -Full code -Lovenox for DVT prophylaxis Status: Acute (2) COPD (chronic obstructive pulmonary disease): DuoNeb treatments, Solu-Medrol 40 q. 12 Status: Acute (3) BPH (benign prostatic hyperplasia): Continue home medication Status: Acute (4) Hypertension: Hold blood pressure medications Status: Acute (5) Atrial fibrillation: Continue Cardizem Status: Acute (6) Congestive heart failure: Status: Acute (7) Bilateral edema of lower extremity: Status: Acute (8) Thrombocytopenia: -Fatty infiltration of the liver -Platelet count 92, white blood cell count 2.4. 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
--- NOTE | 2020-04-01 17:01 | USCV_ITS ---
Christian Platt Age: 79 Gender: M : 1940 Exam Date: 04/01/2020 06:51 Ordering Phys: Dunia Malik MD Technologist: Ness Olivares Exam Location: [facility] – [place] Indication: CHF, Hypotension BP: 118 / 70 HR: 103 Rhythm: Atrial fibrillation Technical Quality: Fair MEASUREMENTS (Male / Female) Normal Values 2D ECHO LV Diastolic Diameter PLAX 4.7 cm 4.2 - 5.9 / 3.9 - 5.3 cm LV Systolic Diameter PLAX 3.3 cm LV Chamber Size 4.4 cm IVS Diastolic Thickness 1.6 cm 0.6 - 1.0 / 0.6 - 0.9 cm IVS Systolic Thickness 1.6 cm LVPW Diastolic Thickness 1.4 cm 0.6 - 1.0 / 0.6 - 0.9 cm LVPW Systolic Thickness 1.1 cm RV Chamber Size 3.2 cm LVOT Diameter 2.1 cm LV Ejection Fraction 2D Teich 58.5 % LV Ejection Fraction MOD 2C 56.1 % LV Ejection Fraction 2C AL 58.6 % LA Diameter 4.6 cm LA Width 4.5 cm LA Height 7.1 cm RA Width 4.4 cm RA Height 5.9 cm Aorta at Sinotubular Diameter 3.1 cm M-MODE LV Diastolic Diameter MM 5.7 cm 4.2 - 5.9 / 3.9 - 5.3 cm LV Systolic Diameter MM 4.0 cm LV Ejection Fraction MM Teich 54.8 % IVS Diastolic Thickness MM 1.3 cm 0.6 - 1.0 / 0.6 - 0.9 cm IVS Systolic Thickness MM 1.3 cm LVPW Diastolic Thickness MM 1.3 cm 0.6 - 1.0 / 0.6 - 0.9 cm LVPW Systolic Thickness MM 2.0 cm Aortic Annulus Diameter 4.0 cm LA Ao Ratio MM 1.2 MV E Point Septal Separation 0.7 cm DOPPLER AV Peak Velocity 139.0 cm/s LVOT Peak Velocity 96.0 cm/s AV Area Cont Eq vti 2.2 cm squared AV Area Cont Eq pk 2.3 cm squared MV Area PHT 5.4 cm squared MV E' Velocity 126.0 cm/s TR Peak Velocity 270.0 cm/s TR Peak Gradient 29.2 mmHg TV Peak E Velocity 50.0 cm/s Right Atrial Pressure 8.0 mmHg Pulmonary Artery Systolic Pressu 37.2 mmHg PV Peak Velocity 63.0 cm/s RV Acceleration Time 0.1 s RV Ejection Time 0.3 s RV AcT/ET 0.4 FINDINGS Left Ventricle Normal left ventricular cavity size. Normal left ventricular systolic function. Left ventricular ejection fraction is estimated at 55 %. Right Ventricle Normal right ventricular size. Moderate pulmonary hypertension, RVSP 42 mmHg. Right Atrium The right atrium is normal in size. Left Atrium Moderately increased left atrial size. Mitral Valve Moderately thickened mitral valve. Moderate mitral annular calcification. No mitral valve stenosis. Severe mitral valve regurgitation. Aortic Valve Moderate aortic valve calcification. Mild aortic valve stenosis, mean gradient 5 mmHg, MARCIA 2.2 cm squared. Moderate aortic valve regurgitation. Tricuspid Valve Moderate to severe tricuspid valve regurgitation. Pulmonic Valve Structurally normal pulmonic valve without significant stenosis. There is no pulmonic regurgitation. Pericardium Normal pericardium without effusion. Aorta Normal ascending aorta dimension. Possible large pleural effusion. CONCLUSIONS 1-Normal left ventricular cavity size. Normal left ventricular systolic function. Left ventricular ejection fraction is estimated at 55 %. 2-Normal right ventricular size. Moderate pulmonary hypertension, RVSP 42 mmHg. 3-Moderately increased left atrial size. 4-Moderately thickened mitral valve. Moderate mitral annular calcification. No mitral valve stenosis. Severe mitral valve regurgitation. 5-Moderate aortic valve calcification. Mild aortic valve stenosis, mean gradient 5 mmHg, MARCIA 2.2 cm squared. Moderate aortic valve regurgitation. 6-Moderate to severe tricuspid valve regurgitation. 7-There is no pericardial effusion. 8-Right atrial pressure is around 15 mm of mercury. 9-Normal ascending aorta dimension. Possible large pleural effusion. 10-There are no prior echocardiogram studies to compare. Tato Sanchez MD (Electronically Signed) Final Date: 01 April 2020 18:35 S
--- NOTE | 2020-04-01 17:11 | PC.NURSE ---
PT BLOOD PRESSURE'S SOFT IN THE 90'S/50'S. ORDERED PER DR. ORNELAS TO HOLD THIS EVENING'S DOSE OF METOPROLOL 50MG.
[2020-04-01] MEDS: azithromycin 500 MG in sodium chloride 0.9% 250 ML 250 MG IV (18:20)
--- NOTE | 2020-04-01 18:43 | USR_ITS ---
PROCEDURE INFORMATION: Exam: US Abdomen, Limited; Right Upper Quadrant Exam date and time: 04/01/2020 6:15 AM Age: 79 years old Clinical indication: Other: Edema; Additional info: Ruq TECHNIQUE: Imaging protocol: US abdomen. Real time ultrasound with image documentation. Limited exam focused on the right upper quadrant. COMPARISON: No relevant prior studies available. FINDINGS: Pleural space: Right pleural effusion, anechoic, measuring at least 13.5 x 10.7 x 9.3 cm, non loculated as visualized. Liver: The liver measures 14.8 cm in the midclavicular plane. The liver demonstrates increased echogenicity with decreased visualization of periportal fat without sound attenuation. Gallbladder: The gallbladder wall measures 1.9 mm. No gallstones. Common bile duct: The common bile duct measures 1.9 mm. No ductal calculi as visualized. Pancreas: The pancreas is obscured by bowel gas. Right kidney: The right kidney measures 11.1 x 3.8 x 4.1 cm. The renal cortex measures 1.0 cm. Unremarkable. A brief color Doppler examination of the right kidney was performed showing normal color shifts. Aorta: The infrarenal abdominal aorta is obscured by bowel gas. Inferior vena cava: Unremarkable IVC and color Doppler shifts. US/US abdomen limited [id number] IMPRESSION: 1. Limitations as above. 2. Fatty infiltration of the liver. 3. Right pleural effusion.
--- NOTE | 2020-04-01 19:11 | PC.NURSE ---
PATIENT STATED THAT HIS NERVES ARE GETTING TO HIM, AND THAT THIS HAS BEEN HAPPENING MORE AND MORE AT HOME RECENTLY BUT THAT HE HADN'T TALKED TO HIS PRIMARY DOCTOR ABOUT IT YET. DR. FLETCHER NOTIFIED, ORDERED 0.25 XANAX BID PRN PO.
[2020-04-01] MEDS: cefTRIAXone 1,000 MG in sodium chloride 0.9% (plus) 50 ML 100 MG IV (20:28)
[2020-04-01] MEDS: LORazepam 2 mg Tablet PO (20:29)
[2020-04-01] MEDS: potassium chloride ER 10 mEq Tablet PO (20:29)
--- NOTE | 2020-04-01 20:37 | PC.NURSE ---
ASSUMED CARE OF PT. FAMILY CALLED AND INFORMED THIS NURSE THAT THE PT DRINKS AND SMOKES HEAVILY. PT HAS HAD SOME INCREASED AGITATION AND IS NOW SEEING ANTS ON THE FLOOR. DR FLETCHER WAS NOTIFIED AND [facility] PROTOCOL INITIATED. PT DENIES PAIN. WILL CONTINUE TO MONITOR.
[2020-04-01] MEDS: FUROsemide 10 mg/mL SDV 4mL 40 MG IVP (20:39)
[2020-04-01 21:07] LABS: Glucose Point of Care 193 mg/dL (70-110)
[2020-04-02] VITALS (28 sets, daily range): BP systolic 85–131; BP diastolic 55–87; PULSE 78–105; RESP 16–31; TEMP 35.6–36.8; O2SAT 90–97
[2020-04-02 00:56] LABS: Eosinophil Urine No Eosinophils Seen; Urine Eosinophil Count 0 (0-0)
[2020-04-02] MEDS: LORazepam 2 mg Tablet PO (01:17)
--- NOTE | 2020-04-02 01:55 | PC.NURSE ---
PT WOKE UP CONFUSED AND DISORIENTED. PT PULLED OFF TELEMETRY WIRES AND O2 READER. PT REDIRECTED BY SEVERAL NURSES SEVERAL TIMES. PT IS GETTING COMBATIVE AT THIS POINT. ATIVAN 2MG PO WAS GIVEN. PT IS TRYING TO LEAVE. PT IS UNORIENTATED TO PLACE, SITUATION, OR TIME. PT IS COUGHING UP LARGE AMOUNTS OF PHLEM AND SPITTING ON THE FLOOR, BED, AND TRASH. PT THINKS THAT WE ARE ON HIS FRIENDS RANCH DRINKING MOONSHINE. PT REDIRECTED THAT WE ARE IN FACT AT [facility] IN [facility]. 1:1 ORDER WAS RECEIVED FROM DR FLETCHER. WILL CONTINUE TO MONITOR.
--- NOTE | 2020-04-02 02:14 | PC.NURSE ---
PT IS RESTING IN BED NOW. PT HAS CALMED DOWN. WILL CONTINUE TO MONITOR.
--- NOTE | 2020-04-02 05:01 | PC.NURSE ---
PT HAS CALMED DOWN. PT DENIES PAIN. NO ATIVAN WAS GIVEN PER CIWA PROTOCOL. WILL CONTINUE TO MONITOR.
[2020-04-02 05:37] LABS: Hematocrit 36.8 % (42.0-52.0); Hemoglobin 12.4 g/dL (11.7-16.6); Lymphocytes # 0.4 10^3/uL (0.8-4.8); Lymphocytes % 9.4 %; Mean Corpuscular HGB Conc 33.7 g/dL (30.0-36.0); Mean Corpuscular Hemoglobin 35.5 pg (28.0-34.0); Mean Corpuscular Volume 105.4 fL (80-94); Mean Platelet Volume 12.7 fL (7.4-10.4); Monocytes # 0.3 10^3/uL (0.2-0.9); Monocytes % 6.5 %; Neutrophils # 3.23 10^3/uL (1.8-7.7); Neutrophils % 83.8 %; Nucleated Red Blood Cells % 0 %; Platelet Count 98 10^3/cmm (130-400); Red Blood Count 3.49 10^6/uL (4.1-5.3); Red Cell Distribution Width 13.2 % (12.1-15.1); White Blood Count 3.9 10^3/uL (4.0-10.0)
[2020-04-02 05:49] LABS: INR 1.04 (0.8-1.2)
[2020-04-02 06:02] LABS: NT Pro B Type Natriuretic Pept 1141 pg/mL (0-450); Procalcitonin 0.05 ng/mL (0-0.5)
[2020-04-02 06:13] LABS: Alanine Aminotransferase 11 U/L (0-41); Albumin Level 3.5 g/dL (3.5-5.2); Alkaline Phosphatase 109 IU/L (40-130); Aspartate Amino Transferase 11 U/L (0-40); Blood Urea Nitrogen 19 mg/dL (8-23); Calcium 9.3 mg/dL (8.5-10.5); Carbon Dioxide 28 mmol/L (22-29); Chloride 93 mmol/L (98-107); Globulin 2.4 g/dL (1.3-4.6); Glucose 143 mg/dL (65-115); Osmolality Calculated 277 mOsm/kg (285-295); Sodium 131 mmol/L (136-145); Total Bilirubin 0.4 mg/dL (0.15-1.2); Total Protein 5.9 g/dL (6.6-8.7)
[2020-04-02 06:40] LABS: Glucose Point of Care 129 mg/dL (70-110)
[2020-04-02] MEDS: metoprolol tartrate 50 mg Tablet PO ×2 (08:22→18:22)
[2020-04-02] MEDS: multivitamin therapeutic Tablet 1 TAB PO (08:22)
[2020-04-02] MEDS: thiamine 100 mg Tablet PO (08:22)
[2020-04-02] MEDS: losartan 50 mg Tablet 100 MG PO (08:22)
[2020-04-02] MEDS: dilTIAZem ER (24HR) 120 mg Capsule PO (08:23)
[2020-04-02] MEDS: folic acid 1 mg Tablet PO (08:23)
[2020-04-02] MEDS: cholecalciferol (vitamin D3) 1,000 unit Tablet 1000 UNIT PO (08:24)
--- NOTE | 2020-04-02 08:30 | PC.NURSE ---
dr lara ordered nurse to give the albumin that was ordered during and after the thoracentesis for this patient.
--- NOTE | 2020-04-02 08:36 | US_ITS ---
WS: [id number] ULTRASOUND-GUIDED THORACENTESIS CLINICAL INFORMATION: RIGHT THORACOCENTESIS, DR. STEPHENSON TO DO COMPARISON: None. PROCEDURE: Informed consent: The risks, benefits, and alternatives of the procedure were discussed with the tamanna ent. Verbal and written consent was obtained. Timeout: A timeout was performed to confirm the correct patient, procedure, and site. Site: Right Preparation: A suitable skin site was identified. The patient was prepped and draped in usual sterile fashion. Lidocaine 1% was used for local anesthesia. Catheter: 4 Welsh One-Step catheter. Fluid Volume: 1000 ml Color: Yellow Sent to the laboratory for analysis. Complications: None. / thoracentesis [id number] IMPRESSION: Uncomplicated ultrasound-guided thoracentesis. No pneumothorax.
[2020-04-02] MEDS: ipratropium-albuterol 3 mL Neb INHALATION ×4 (08:53→22:44)
--- NOTE | 2020-04-02 09:30 | PC.NURSE ---
ciwa done. patient confused at this time. sat up on side of the bed to take medications. call light within reach. sitter at bedside. will continue to monitor.
--- NOTE | 2020-04-02 10:30 | PC.NURSE ---
dr lara in room. asked patient if he knew where he was, which hospital with the response of [facility], well maybe [facility]. dr lara instructed nurse to give haldol that is ordered if patient score high enough on the ciwa instead of the ativan.
--- NOTE | 2020-04-02 15:02 | XR_ITS ---
WS: [id number] CHEST XRAY TECHNIQUE: Portable chest. CLINICAL INFORMATION: post thoracentesis COMPARISON: None. FINDINGS: Improved right pleural effusion post thoracentesis. Subsegmental atelectasis right lower lo be. Moderate left pleural effusion. No pneumothorax. Cardiomegaly. XR/XR chest 1V portable [id number] IMPRESSION: Improved right pleural effusion post thoracentesis. No pneumothorax.
--- NOTE | 2020-04-02 15:15 | PC.NURSE ---
thoracentisis on the right side started at 1448. time out performed. 1000 ml removed. pt tolerated well. vitals remained stable throughout. procedure finished at 1502. chest xray ordered. albumin was started per dr lara order. will continue to monitor patient.
--- NOTE | 2020-04-02 15:54 | P.PN_ITS ---
Subjective Subjective: Interval history: Patient had episodes of agitation overnight, admits that patient drinks alcohol daily, started on CIWA protocol, this morning he was seen multiple times, he is arousable, alert to person, place, not to time, does follow commands, does answer most questions appropriate, is not agitated during my examination, jokes around, is on 5 L, heart rates 105, denies any chest pain still a bit short of breath, awaiting thoracocentesis Vitals/I&O/Wt Last Vital Signs Temp 96.0 F L 04/02/20 10:55 Pulse 105 H 04/02/20 15:40 Resp 18 04/02/20 15:37 BP 106/67 04/02/20 15:29 Pulse Ox 93 04/02/20 15:37 04/02/20 04/02/20 04/02/20 06:59 14:59 22:59 Intake Total 60 / 1460 Output Total 600 / 1600 Balance -540 / -140 Physical Exam Const: COMMON NORMALS: no acute distress GENERAL APPEARANCE: cooperative ORIENTATION/CONSCIOUSNESS: Yes awake, Yes oriented to person, Yes oriented to p lace and Yes confused; not oriented to time HENMT: COMMON NORMALS: normocephalic HEAD & SCALP: normocephalic Neck/C-Spine: COMMON NORMALS: no JVD Resp: COMMON NORMALS: normal respiratory effort, No retractions and No use of accessory muscles AUSCULTATION: diminished lung sounds bilateral in the lower lung vyas Cardio: COMMON NORMALS: no JVD, regular rate, regular rhythm, S1 normal heart sound present and S2 normal heart sound present RATE: regular rate RHYTHM: regular rhythm HEART SOUNDS: S1 normal heart sound present and S2 normal heart sound present GI: COMMON NORMALS: Normal to inspection, nondistended, normoactive bowel sounds present, Soft to palpation, non-tender, No hepatosplenomegaly present, no masses and no bruits PALPATION: Yes Soft to palpation and Yes No hepatosplenomegaly present Extremity: COMMON NORMALS: capillary refill normal, no clubbing, cyanosis or edema, no calf tenderness and no pedal edema Neuro: SENSORIUM/ORIENTATION: Yes oriented to person and Yes oriented to place Psych: COMMON NORMALS: mental status grossly normal Data : 04/02/20 04:31 04/02/20 04:31 Micro: Microbiology 04/02/20 08:20 Gram Stain - Final Sputum - Expectorated Sputum 04/01/20 15:09 MRSA Culture - Final Nose 03/31/20 18:51 Urine Culture - Preliminary Urine,Voided 03/31/20 19:18 Blood Culture - Preliminary Blood NEGATIVE TO DATE 03/31/20 13:38 Blood Culture - Preliminary Blood NEGATIVE TO DATE A&P Assessment and plan (1) Acute respiratory failure with hypoxia: Secondary to CHF exacerbation, some degree of COPD exacerbation -CTA of the chest showed: 1. There are bilateral pleural effusions with underlying compressive atelectasis or infiltrate.There is prominent consolidation of the left lower lobe with only a small amount of residual normal pulmonary parenchyma. Any underlying pathology such as neoplasm cannot be excluded. 2. There are centrilobular emphysematous changes in the bilateral lungs. 3. No evidence for pulmonary embolus. Plan: -Admit to cardiac stepdown unit -Cardiac echocardiogram shows an EF of 55%, moderate pulmonary hypertension, mo derately increased left atrial size, severe mitral valve regurg, moderate aortic valve regurg, moderate to severe tricuspid valve regurg -Lasix 40 mg IV once daily as he is hyponatremic, sodium 131 -CT angiogram shows significant bilateral pleural effusions, patient will likely require a bilateral thoracocentesis, hold Eliquis, hold aspirin -We will have right-sided thoracocentesis today, will get albumin due to borderline low blood pressures plan on left-sided tomorrow -Potassium replacement -Strict fluid intake, I's and O's, 1500 cc fluid restriction -Monitor vitals closely, monitor respiratory status -BiPAP as needed -Full code -Lovenox for DVT prophylaxis Status: Acute (2) COPD (chronic obstructive pulmonary disease): DuoNeb treatments, Solu-Medrol 40 q. 12 Status: Acute (3) BPH (benign prostatic hyperplasia): Continue home medication Status: Acute (4) Hypertension: Hold blood pressure medications Status: Acute (5) Atrial fibrillation: Continue Cardizem Status: Acute (6) Congestive heart failure: Status: Acute (7) Bilateral edema of lower extremity: Nonpitting today Status: Acute (8) Thrombocytopenia: -Fatty infiltration of the liver, and alcohol abuse -Platelet count 92, white blood cell count 2.4. -Will require outpatient work-up, likely require requirement some form of Metformin Peripheral smear shows leukopenia, lymphopenia, thrombocytopenia, no blasts Status: Acute (9) Hyponatremia: Likely lasix Status: Acute (10) Low blood pressure: Likely secondary to blood pressure medications, overdiuresis Status: Acute (11) Alcohol withdrawal: Last drink was just before he came in [facility] protocol Status: Acute Attestations Medical Necessity Statement*: Patient requires hospitalization for CHF exacerbation, bilateral pleural effusions, pneumonia, alcohol withdrawal Coding Level of Care Code Acute 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
[2020-04-02 16:10] LABS: Body Fluid Polynuclear #Cells 0.011; Body Fluid WBC 464 /uL; Monocytes # Body Fluid 0.453; RBC, Body Fluid 0 10^3/uL
[2020-04-02 16:20] LABS: Albumin Body Fluid 1.4 g/dL; Creatinine Body Fluid 0.62 (0.7-1.2); LDH Pleural Fluid 54 U/L; Total Protein Pleural Fluid 1.9 g/dL; Triglycerides, Pleural Fluid 10 mg/dL
[2020-04-02 16:29] LABS: Apprearance, Body Fluid CLEAR; Color, Body Fluid PALE YELLOW; PATH Referral YES
--- NOTE | 2020-04-02 17:15 | PC.RESP ---
Smoking Cessation and Pulmonary Rehab information sent to patient.
[2020-04-02] MEDS: azithromycin 500 MG in sodium chloride 0.9% 250 ML 250 MG IV (18:21)
--- NOTE | 2020-04-02 19:52 | PC.NURSE ---
Patient knows that he is in the hospital, but thinks that he is in the hospital in [place]. Patient is oriented to year and person. One-on-one sitter at bedside.
--- NOTE | 2020-04-02 19:58 | PC.NURSE ---
Verified to give Terasozin and Lasix that is currently due with blood pressure currently of 97/57. Ordered by Dr. Mariano khan to go ahead and give medications.
[2020-04-02] MEDS: cefTRIAXone 1,000 MG in sodium chloride 0.9% (plus) 50 ML 100 MG IV (20:04)
[2020-04-02] MEDS: FUROsemide 10 mg/mL SDV 4mL 40 MG IVP (20:05)
[2020-04-02] MEDS: potassium chloride ER 10 mEq Tablet PO (20:05)
[2020-04-02] MEDS: ALPRAZolam 0.25 mg Tablet PO (21:19)
--- NOTE | 2020-04-02 21:24 | PC.NURSE ---
Patient educated on fluid restriction and verbalized understanding.
[2020-04-03] VITALS (29 sets, daily range): BP systolic 94–130; BP diastolic 48–69; PULSE 79–105; RESP 16–91; TEMP 35.7–36.7; O2SAT 90–99
--- NOTE | 2020-04-03 04:15 | PC.NURSE ---
Patient did not get much sleep throughout the night, but otherwise did well.
--- NOTE | 2020-04-03 05:29 | PC.NURSE ---
Patient states I haven't had a good night's sleep in almost 3 weeks.
[2020-04-03 06:06] LABS: Hematocrit 37.3 % (42.0-52.0); Lymphocytes # 0.3 10^3/uL (0.8-4.8); Lymphocytes % 4.9 %; Mean Corpuscular HGB Conc 32.2 g/dL (30.0-36.0); Mean Corpuscular Volume 108.7 fL (80-94); Mean Platelet Volume 12.4 fL (7.4-10.4); Monocytes # 0.3 10^3/uL (0.2-0.9); Monocytes % 5.5 %; Neutrophils # 4.53 10^3/uL (1.8-7.7); Neutrophils % 89.2 %; Nucleated Red Blood Cells % 0 %; Platelet Count 92 10^3/cmm (130-400); Red Blood Count 3.43 10^6/uL (4.1-5.3); Red Cell Distribution Width 13.4 % (12.1-15.1); White Blood Count 5.1 10^3/uL (4.0-10.0)
[2020-04-03 06:21] LABS: INR 1.02 (0.8-1.2)
[2020-04-03 06:35] LABS: Alanine Aminotransferase 18 U/L (0-41); Alkaline Phosphatase 102 IU/L (40-130); Anion Gap 15.7 (5-19); Aspartate Amino Transferase 18 U/L (0-40); Blood Urea Nitrogen 23 mg/dL (8-23); Calcium 9.5 mg/dL (8.5-10.5); Carbon Dioxide 28 mmol/L (22-29); Chloride 95 mmol/L (98-107); Glucose 121 mg/dL (65-115); Magnesium 2.3 mg/dL (1.7-2.3); Osmolality Calculated 283 mOsm/kg (285-295); Phosphorus 4.3 mg/dL (2.5-4.5); Potassium 4.7 mmol/L (3.5-5.1); Sodium 134 mmol/L (136-145); Total Bilirubin 0.5 mg/dL (0.15-1.2)
[2020-04-03 06:42] LABS: NT Pro B Type Natriuretic Pept 1760 pg/mL (0-450); Procalcitonin 0.04 ng/mL (0-0.5)
--- NOTE | 2020-04-03 07:00 | XRR_ITS ---
PROCEDURE INFORMATION: Exam: XR Chest, 1 View Exam date and time: 04/03/2020 6:15 AM Age: 79 years old Clinical indication: Shortness of breath; Additional info: SOB TECHNIQUE: Imaging protocol: XR of the chest Views: 1 view. COMPARISON: CR XR chest 1V portable [id number] 04/02/2020 3:22 PM FINDINGS: Lungs: Subtle patchy interstitial and alveolar airspace disease most pronounced within the right lower lobe and left lung base. Pleural space: moderate left pleural effusion with left basilar consolidation versus atelectasis. Heart/Mediastinum: Unremarkable. No cardiomegaly. Bones/joints: Unremarkable. XR/XR chest 1V portable [id number] IMPRESSION: 1. Moderate left pleural effusion with left basilar consolidation versus atelectasis. 2. Subtle patchy interstitial and alveolar airspace disease most pronounced within the right lower lobe and left lung base. Moderate subpulmonic effusion on the right.
[2020-04-03] MEDS: ipratropium-albuterol 3 mL Neb INHALATION ×4 (08:22→20:10)
--- NOTE | 2020-04-03 08:26 | US_ITS ---
WS: [id number] ULTRASOUND-GUIDED THORACENTESIS CLINICAL INFORMATION: THORACOCENTESIS ON LEFT COMPARISON: None. PROCEDURE: Informed consent: The risks, benefits, and alternatives of the procedure were discussed with the tamanna ent. Verbal and written consent was obtained. Timeout: A timeout was performed to confirm the correct patient, procedure, and site. Site: Left Preparation: A suitable skin site was identified. The patient was prepped and draped in usual sterile fashion. Lidocaine 1% was used for local anesthesia. Catheter: 4 Lithuanian One-Step catheter. Fluid Volume: 1100 ml Color: Yellow Discarded safely. Complications: None. / thoracentesis [id number] IMPRESSION: Uncomplicated ultrasound-guided left thoracentesis with removal of 1100 cc yell ow fluid. No pneumothorax.
--- NOTE | 2020-04-03 08:37 | PC.NURSE ---
dr lara made aware of the patient being alert and orientated X3. verbal order to discontinue sitter.
[2020-04-03] MEDS: metoprolol tartrate 25 mg Tablet PO ×2 (08:47→17:27)
[2020-04-03] MEDS: losartan 50 mg Tablet 100 MG PO (08:47)
[2020-04-03] MEDS: folic acid 1 mg Tablet PO (08:47)
[2020-04-03] MEDS: dilTIAZem ER (24HR) 120 mg Capsule PO (08:47)
[2020-04-03] MEDS: cholecalciferol (vitamin D3) 1,000 unit Tablet 1000 UNIT PO (08:48)
[2020-04-03] MEDS: thiamine 100 mg Tablet PO (08:48)
[2020-04-03] MEDS: multivitamin therapeutic Tablet 1 TAB PO (08:48)
--- NOTE | 2020-04-03 09:20 | PC.NURSE ---
patient resting on the side of the bed with bed alarm set. patient instructed on how to use the call light if he needed help. patient verbalized an understanding on not getting up by himself and needing to push the call light. will continue to monitor.
--- NOTE | 2020-04-03 09:22 | DCPLANNER ---
IMM completed with pt on 04/03/20 @ [id number]. Copy of rights given to pt.
--- NOTE | 2020-04-03 10:10 | PC.NURSE ---
daughter Ruma Asher called and wanted update from dr. Raymond notified in person and volte with a picture of the daughters name and phone number to call.
--- NOTE | 2020-04-03 11:14 | XR_ITS ---
WS: [id number] CHEST XRAY TECHNIQUE: Portable chest. CLINICAL INFORMATION: post thoracentesis COMPARISON: April 03, 2020 FINDINGS: Heart: Cardiomegaly. Lungs: Chronic emphysematous changes. Improved left pleural effusion. No pneumothorax. Small right pl eural effusion. Volume loss left lower lobe. Bones: Osteopenia. XR/XR chest 1V portable [id number] IMPRESSION: Improved left pleural effusion post thoracentesis. No pneumothorax.
--- NOTE | 2020-04-03 11:29 | PC.NURSE ---
procedure started at 1115. patient tolerated well. 1100 ml of yellow fluid removed. patient tolerated well, vitals stable throughout. procedure finished at 1123. chest xray ordered. albumin started per dr lara order.
--- NOTE | 2020-04-03 14:08 | P.PN_ITS ---
Subjective Subjective: Interval history: This morning patient was seen, he is much more alert, awake, oriented according to nursing staff, quite pleasant, on 4 L, tells me that his breathing has significantly improved, did well with thoracocentesis on the right yesterday Vitals/I&O/Wt Last Vital Signs Temp 96.7 F L 04/03/20 12:00 Pulse 86 04/03/20 14:05 Resp 19 H 04/03/20 14:05 BP 108/62 04/03/20 14:05 Pulse Ox 97 04/03/20 14:05 04/02/20 04/03/20 04/03/20 22:59 06:59 14:59 Intake Total 1220 / 1220 600 / 600 Output Total 325 / 325 Balance 1220 / 1220 -325 / 895 600 / 600 Physical Exam Const: COMMON NORMALS: no acute distress and patient oriented x3 HENMT: COMMON NORMALS: normocephalic HEAD & SCALP: normocephalic Neck/C-Spine: COMMON NORMALS: no JVD Resp: COMMON NORMALS: normal respiratory effort, No retractions, No use of accessory muscles and clear to auscultation bilaterally AUSCULTATION: clear to auscultation bilaterally and diminished lung sounds on the right in the lower lung vyas Cardio: COMMON NORMALS: no JVD, regular rate, regular rhythm, S1 normal heart sound present and S2 normal heart sound present RATE: regular rate RHYTHM: regular rhythm HEART SOUNDS: S1 normal heart sound present and S2 normal heart sound present GI: COMMON NORMALS: Normal to inspection, nondistended, normoactive bowel sounds present, Soft to palpation, non-tender, No hepatosplenomegaly present, no masses and no bruits PALPATION: Yes Soft to palpation and Yes No hepatosplenomegaly present Extremity: COMMON NORMALS: capillary refill normal, no clubbing, cyanosis or edema, no calf tenderness and no pedal edema Neuro: COMMON NORMALS: patient oriented x3 Psych: COMMON NORMALS: mental status grossly normal Data : 04/03/20 03:40 04/03/20 03:40 Micro: Microbiology 04/02/20 08:20 Gram Stain - Final Sputum - Expectorated Sputum Sputum Culture - Preliminary 03/31/20 18:51 Urine Culture - Final Urine,Voided 04/02/20 15:03 Gram Stain - Final Pleural Fluid Body Fluid Culture - Preliminary 04/01/20 15:09 MRSA Culture - Final Nose A&P Assessment and plan (1) Acute respiratory failure with hypoxia: Secondary to CHF exacerbation, some degree of COPD exacerbation -CTA of the chest showed: 1. There are bilateral pleural effusions with underlying compressive atelectasis or infiltrate.There is prominent consolidation of the left lower lobe with only a small amount of residual normal pulmonary parenchyma. Any underlying pathology such as neoplasm cannot be excluded. 2. There are centrilobular emphysematous changes in the bilateral lungs. 3. No evidence for pulmonary embolus. -Still on 5 L nasal cannula, symptomatically improving Plan: -Admit to cardiac stepdown unit -Cardiac echocardiogram shows an EF of 55%, moderate pulmonary hypertension, moderately increased left atrial size, severe mitral valve regurg, moderate aortic valve regurg, moderate to severe tricuspid valve regurg -Status post thoracocentesis on the right, 1 L removed -We will have repeat thoracocentesis today, on the left -Lasix 40 mg IV twice daily for the next 48 hours, serum sodium 134, creatinine 0.8 -Resume Eliquis and aspirin this evening -Potassium replacement -Strict fluid intake, I's and O's, 1500 cc fluid restriction -Monitor vitals closely, monitor respiratory status -BiPAP as needed -Full code -Lovenox for DVT prophylaxis Status: Acute (2) COPD (chronic obstructive pulmonary disease): DuoNeb treatments, switch to prednisone 40 mg daily Status: Acute (3) BPH (benign prostatic hyperplasia): Continue home medication Status: Acute (4) Hypertension: Hold blood pressure medications Status: Acute (5) Atrial fibrillation: Continue Cardizem, metoprolol reduced to 25 mg twice daily Status: Acute (6) Congestive heart failure: Status: Acute (7) Bilateral edema of lower extremity: Nonpitting today Status: Acute (8) Thrombocytopenia: -Fatty infiltration of the liver, and alcohol abuse -Platelet count 92, white blood cell count 2.4. -Will require outpatient work-up, likely require requirement some form of Metformin Peripheral smear shows leukopenia, lymphopenia, thrombocytopenia, no blasts Status: Acute (9) Hyponatremia: Likely lasix, currently 134 Status: Acute (10) Low blood pressure: Likely secondary to blood pressure medications, continue to monitor Status: Acute (11) Alcohol withdrawal: Last drink was just before he came in [facility]WA protocol Status: Acute Attestations Medical Necessity Statement*: Patient requires hospitalization for acute respiratory failure with hypoxia secondary to COPD, CHF Coding Level of Care Code Acute [employer] for [facility] Fwd Diagnoses Acute respiratory failure with hypoxia J96.01 COPD (chronic obstructive pulmonary disease) J44.9 BPH (benign prostatic hyperplasia) N40.0 Hypertension I10 Atrial fibrillation I48.91 Congestive heart failure I50.9 Bilateral edema of lower extremity R60.0 Thrombocytopenia D69.6 Hyponatremia E87.1 Low blood pressure I95.9 Alcohol withdrawal F10.239
[2020-04-03] MEDS: FUROsemide 10 mg/mL SDV 4mL 40 MG IVP (14:41)
[2020-04-03] MEDS: apixaban 5 mg Tablet PO (17:27)
[2020-04-03] MEDS: azithromycin 250 mg Tablet 500 MG PO (18:07)
--- NOTE | 2020-04-03 18:37 | PC.NURSE ---
Family has expressed concern about needing home health.
[2020-04-03] MEDS: cefTRIAXone 1,000 MG in sodium chloride 0.9% (plus) 50 ML 100 MG IV (19:15)
--- NOTE | 2020-04-03 19:20 | PC.NURSE ---
Patient is alert and oriented x 4 at this time. Patient has been educated on how to use his call light and not to get up without assistance. Will check on patient frequently.
[2020-04-03] MEDS: ALPRAZolam 0.25 mg Tablet PO (20:31)
[2020-04-03] MEDS: atorvastatin 40 mg Tablet PO (20:31)
[2020-04-03] MEDS: potassium chloride ER 20 mEq Tablet PO (20:31)
[2020-04-04] VITALS (13 sets, daily range): BP systolic 98–138; BP diastolic 63–71; PULSE 70–113; RESP 16–25; TEMP 35.8–36.8; O2SAT 88–98
[2020-04-04] MEDS: FUROsemide 10 mg/mL SDV 4mL 40 MG IVP (03:09)
[2020-04-04 04:32] LABS: Hematocrit 37.2 % (42.0-52.0); Hemoglobin 12.1 g/dL (11.7-16.6); Lymphocytes # 0.4 10^3/uL (0.8-4.8); Lymphocytes % 7.4 %; Mean Corpuscular HGB Conc 32.5 g/dL (30.0-36.0); Mean Corpuscular Hemoglobin 35.3 pg (28.0-34.0); Mean Corpuscular Volume 108.5 fL (80-94); Mean Platelet Volume 12.7 fL (7.4-10.4); Monocytes # 0.6 10^3/uL (0.2-0.9); Monocytes % 10.2 %; Neutrophils # 4.76 10^3/uL (1.8-7.7); Neutrophils % 82.1 %; Nucleated Red Blood Cells % 0 %; Platelet Count 89 10^3/cmm (130-400); Red Blood Count 3.43 10^6/uL (4.1-5.3); Red Cell Distribution Width 13.3 % (12.1-15.1); White Blood Count 5.8 10^3/uL (4.0-10.0)
[2020-04-04 04:57] LABS: Alanine Aminotransferase 21 U/L (0-41); Albumin Level 3.9 g/dL (3.5-5.2); Alkaline Phosphatase 88 IU/L (40-130); Anion Gap 12.7 (5-19); Aspartate Amino Transferase 16 U/L (0-40); Blood Urea Nitrogen 25 mg/dL (8-23); Calcium 9.8 mg/dL (8.5-10.5); Carbon Dioxide 29 mmol/L (22-29); Chloride 96 mmol/L (98-107); Glucose 125 mg/dL (65-115); Magnesium 2.3 mg/dL (1.7-2.3); Osmolality Calculated 282 mOsm/kg (285-295); Phosphorus 3.6 mg/dL (2.5-4.5); Potassium 4.7 mmol/L (3.5-5.1); Sodium 133 mmol/L (136-145); Total Bilirubin 0.5 mg/dL (0.15-1.2); Total Protein 5.9 g/dL (6.6-8.7)
[2020-04-04 05:02] LABS: NT Pro B Type Natriuretic Pept 2495 pg/mL (0-450)
--- NOTE | 2020-04-04 07:00 | XR_ITS ---
WS: [id number] Portable AP upright chest, 04/04/2020 Clinical Data: sob Comparison: Portable chest, 04/03/2020 Findings: The right pleural effusion has diminished. There is patchy atelectasis and/or pneumonia in both lower lobes unchanged. There is a small left pleural effusion. The heart size is at the upper li mits of normal. Monitor leads are on the chest wall. XR/XR chest 1V portable [id number] Impression: 1. No change in left pleural effusion but decrease in right pleural effusion. 2. No change in patchy atelectasis and/or pneumonia in both lower lobes.
[2020-04-04] MEDS: folic acid 1 mg Tablet PO (08:40)
[2020-04-04] MEDS: aspirin 81 mg EC Tablet PO (08:40)
[2020-04-04] MEDS: dilTIAZem ER (24HR) 120 mg Capsule PO (08:40)
[2020-04-04] MEDS: cholecalciferol (vitamin D3) 1,000 unit Tablet 1000 UNIT PO (08:40)
[2020-04-04] MEDS: thiamine 100 mg Tablet PO (08:40)
[2020-04-04] MEDS: apixaban 5 mg Tablet PO ×2 (08:40→17:37)
[2020-04-04] MEDS: multivitamin therapeutic Tablet 1 TAB PO (08:40)
[2020-04-04] MEDS: losartan 50 mg Tablet 100 MG PO (08:40)
[2020-04-04] MEDS: metoprolol tartrate 25 mg Tablet PO ×2 (08:41→17:37)
[2020-04-04] MEDS: predniSONE 20 mg Tablet 40 MG PO (08:41)
[2020-04-04] MEDS: ipratropium-albuterol 3 mL Neb INHALATION ×2 (09:15→12:59)
--- NOTE | 2020-04-04 13:15 | P.DS_ITS ---
Discharge Providers Date of Admission: 03/31/20 17:15 Date of Discharge: April 04, 2020 Attending Provider at Admission: Mark Raymond MD Attending Provider at Discharge: Mark Raymond MD Diagnoses at Discharge Discharge Diagnosis (1) Acute respiratory failure with hypoxia: Status: Acute (2) COPD (chronic obstructive pulmonary disease): Status: Acute (3) BPH (benign prostatic hyperplasia): Status: Acute (4) Hypertension: Status: Acute (5) Atrial fibrillation: Status: Acute (6) Congestive heart failure: Status: Acute (7) Bilateral edema of lower extremity: Status: Acute (8) Thrombocytopenia: Status: Acute (9) Hyponatremia: Status: Acute (10) Low blood pressure: Status: Acute (11) Alcohol withdrawal: Status: Acute Reason for Visit Reason for Visit: BP 80/40, Low O2 Hospital Course Hospital Course This is a 79-year-old male with a past medical history of COPD, current smoker, systolic and diastolic heart failure, bilateral extreme edema, thoracic aortic aneurysm, recent history of atrial fibrillation on Eliquis, BPH, no CAD history, no history of strokes, no history of carotid artery stenosis, had a stress test many years ago which was negative, who presents [facility] due to 2- week history of shortness of breath Patient was admitted to [facility] for acute respiratory with hypoxia, secondary to CHF exacerbation, COPD exacerbation, bilateral pleural effusions, pulmonary edema Patient was admitted to the cardiac stepdown unit For bilateral pleural effusions, received bilateral thoracocentesis, 1 L removed bilaterally For pulmonary edema, and acute on chronic systolic diastolic CHF exacerbation he received inpatient diuresis, clinically improved discharged on Lasix 40 mg twice daily Of note patient's echocardiogram does show an EF of 55%, moderate pulmonary hypertension, severe mitral valve regurg, moderate aortic valve regurg, moderate to severe tricuspid valve regurg. Given patient's moderate to severe tricuspid valve regurg, there was concerns for contribution of tricuspid valve regurg to patient's shortness of breath. I spoke to Dr. Bonilla, who recommended a transesophageal echocardiogram as outpatient, will have patient follow-up with Dr. Bonilla as outpatient Pneumonia, bilateral lower lobes, placed on broad-spectrum antibiotics, cultures so far have been negative, discharged on Levaquin For COPD exacerbation, received steroids, nebulizer treatments, clinically improved, discharged on a prednisone burst Patient had elevated troponins on admission, 6-hour of 17.56, negative delta, no complaints of chest pain, EKG no acute ST-T wave changes. Given patient's shortness of breath, given CHF, question of ischemic versus nonischemic, new onset atrial fibrillation, I have ordered a cardiac stress test in 1 week, will follow with Dr. Bonilla for results. Nonetheless I have discharged the patient on aspirin and statin. Patient also had thrombocytopenia on admission, likely currently secondary to fatty liver disease, and alcohol consumption, platelet count on discharge was 89. There is significant worry for bleeding as he is on Eliquis and on aspirin. Patient was advised that if he were have bloody or black stools, hematemesis, hemoptysis call 911 or go to the emergency room Patient also had mild alcohol withdrawal as inpatient, requiring Ativan as needed, mentation returned back to baseline, discharged on instructions to avoid alcohol consumption, thiamine, multivitamin, folic acid. Physical Exam Const: COMMON NORMALS: no acute distress and patient oriented x3 HENMT: COMMON NORMALS: normocephalic HEAD & SCALP: normocephalic Neck/C-Spine: COMMON NORMALS: no JVD Resp: COMMON NORMALS: normal respiratory effort, No retractions, No use of accessory muscles and clear to auscultation bilaterally AUSCULTATION: clear to auscultation bilaterally Cardio: COMMON NORMALS: no JVD, regular rate, regular rhythm, S1 normal heart sound present and S2 normal heart sound present RATE: regular rate RHYTHM: regular rhythm HEART SOUNDS: S1 normal heart sound present and S2 normal heart sound present GI: COMMON NORMALS: Normal to inspection, nondistended, normoactive bowel sounds present, Soft to palpation, non-tender, No hepatosplenomegaly present, no masses and no bruits PALPATION: Yes Soft to palpation and Yes No hepatosplenomegaly present Extremity: COMMON NORMALS: capillary refill normal, no clubbing, cyanosis or edema, no calf tenderness and no pedal edema Neuro: COMMON NORMALS: patient oriented x3 Psych: COMMON NORMALS: mental status grossly normal Discharge Data Data Completed and Pending: Completed Studies During Hospitalization Category Date Time Status CT angio chest PE protcl [id number] Urge nt Cat Scan 03/31/20 17:34 Completed XR chest 1V vargas ble [id number] Routine Exams 04/03/20 07:00 Completed XR chest 1V vargas ble [id number] Routine Exams 04/04/20 07:00 Completed XR chest 1V vargas ble [id number] Stat Exams 03/31/20 13:34 Completed XR chest 1V vargas ble [id number] Stat Exams 04/02/20 15:02 Completed XR chest 1V vargas ble [id number] Stat Exams 04/03/20 11:14 Completed CV echo complete* [id number] Routine Ultrasound 04/01/20 17:01 Completed US abdomen limite d [id number] Routine Ultrasound 04/01/20 18:43 Completed US thoracentesis [id number] Routine Ultrasound 04/03/20 08:26 Completed US thoracentesis [id number] Stat Ultrasound 04/02/20 08:36 Completed Pending at discharge Category Date Time Status Blood Culture Sta t Lab 03/31/20 19:18 Results Body Fluid Cultur e & GS Routine Lab 04/02/20 15:03 Results Complete Blood Co unt w/Auto AM LABS Lab 04/05/20 04:00 Ordered Complete Blood Co unt w/Auto AM LABS Lab 04/06/20 04:00 Ordered Comprehensive Met abolic Panel AM LA BS Lab 04/05/20 04:00 Ordered Comprehensive Met abolic Panel AM LA BS Lab 04/06/20 04:00 Ordered Magnesium AM LABS Lab 04/05/20 04:00 Ordered Magnesium AM LABS Lab 04/06/20 04:00 Ordered Mycobacteria, Cul ture w/Fluor Routi ne Lab 04/02/20 15:03 Results NT Pro B Type Jaquelin riuretic Pept QAM Lab 04/05/20 06:00 Ordered NT Pro B Type Jaquelin riuretic Pept QAM Lab 04/06/20 06:00 Ordered Phosphorus AM LAB S Lab 04/05/20 04:00 Ordered Phosphorus AM LAB S Lab 04/06/20 04:00 Ordered Sputum Culture an d Gram Stain Stat Lab 04/02/20 08:20 Results Cytology [PTH] Ro utine Pth 04/02/20 08:38 Ordered Labs from last 24 hours 04/04/20 04/04/20 04/04/20 03:20 03:20 03:20 WBC 5.8 RBC 3.43 L Hgb 12.1 Hct 37.2 L MCV 108.5 H MCH 35.3 H MCHC 32.5 RDW 13.3 Plt Count 89 L MPV 12.7 H Neut % (Auto) 82.1 Lymph % (Auto) 7.4 Williamson % (Auto) 10.2 Eos % (Auto) 0.0 Baso % (Auto) 0.0 Neut # (Auto) 4.76 Lymph # (Auto) 0.4 L Williamson # (Auto) 0.6 Eos # (Auto) 0.0 Baso # (Auto) 0.0 Nucleated RBC % (a uto) 0 Nucleated RBCs # 0.0 Sodium 133 L Potassium 4.7 Chloride 96 L Carbon Dioxide 29 Anion Gap 12.7 BUN 25 H Creatinine 0.7 GFR Calculation Not Reportable Glucose 125 H Calculated Osmolal ity 282 L Calcium 9.8 Phosphorus 3.6 Magnesium 2.3 Total Bilirubin 0.5 AST 16 ALT 21 Alkaline Phosphata se 88 NT-Pro-B Natriuret Pep 2495 H Total Protein 5.9 L Albumin 3.9 Globulin 2.0 Vitals: Last Vital Signs Temp 96.4 F L 04/04/20 10:52 Pulse 96 04/04/20 13:10 Resp 20 H 04/04/20 13:04 BP 104/65 04/04/20 10:52 Pulse Ox 94 04/04/20 13:04 Discharge Plan Discharge Patient Disposition: Home Condition: Stable Prescriptions: New atorvastatin 40 mg Tablet 40 mg PO BEDTIME 30 Days Qty: 30 RF: 0 prednisone 20 mg Tablet 40 mg PO DAILY 5 Days Qty: 10 RF: 0 folic acid 1 mg Tablet 1 mg PO DAILY 30 Days Qty: 30 RF: 0 Thera 400 mcg Tablet 1 tab PO DAILY 30 Days Qty: 30 RF: 0 Klor-Con M20 20 mEq Tablet,Er Particles/Crystals 20 meq PO BEDTIME 30 Days Qty: 30 RF: 0 metoprolol tartrate 25 mg Tablet 25 mg PO BID 30 Days Qty: 60 RF: 0 levofloxacin 750 mg tablet 750 mg PO DAILY 7 Days Qty: 7 RF: 0 Continued furosemide 40 mg tablet 40 mg PO BID RF: 0 terazosin 2 mg Capsule 2 mg PO BEDTIME RF: 0 Cartia XT 120 mg capsule,extended release 24hr 120 mg PO DAILY RF: 0 aspirin 81 mg Tablet 81 mg PO DAILY RF: 0 ProAir HFA 90 mcg/actuation Hfa Aerosol Inhaler 1 inh INHALATION QID PRN (Reason: Shortness Of Breath) RF: 0 losartan 100 mg Tablet 100 mg PO DAILY RF: 0 Vitamin D3 25 mcg (1,000 unit) Capsule 25 mcg PO DAILY RF: 0 Spiriva with HandiHaler 18 mcg Capsule, W/Inhalation Device 1 cap INHALATION DAILY RF: 0 Symbicort 80-4.5 mcg/actuation Hfa Aerosol Inhaler 2 puff INHALATION BID RF: 0 Eliquis 5 mg tablet 5 mg PO BID RF: 0 Discontinued potassium chloride 10 mEq capsule, extended release 10 meq PO DAILY RF: 0 amlodipine 10 mg Tablet 10 mg PO DAILY RF: 0 metoprolol tartrate 50 mg Tablet 50 mg PO BID RF: 0 Discharge Orders: Discharge Order (Routine); Ordered 04/04/20 Ordered By: Mark Raymond Other Ambulatory Orders: Sestamibi Stress Test Request (Routine) Timeframe: 1 Week Facility: [facility] - Location: Cardiac Diagnostic Laboratory Ordered By: Mark Raymond DME: Oxygen (Order) Location: None Selected Ordered By: Mark Raymond Referrals: José Luis Bonilla M.D [Physician] - 1 week Discharge Diet: Cardiac Discharge Activity: Resume usual activity Activity Restrictions/Additional Instructions: -Please stop smoking -Please refrain from alcohol consumption -For your heart failure, take Lasix 40 mg twice daily -Restrict fluid intake to 2 L a day -If you gain more than 2 to 3 pounds over 2 days, take another 40 mg of Lasix -Follow-up with cardiology in 1 week -I have ordered a cardiac stress test to be done in 1 week -If you have worsening shortness of breath go to the emergency room -For atrial fibrillation use metoprolol, Cardizem, Eliquis as prescribed -Cardiology will want to do a transesophageal echocardiogram sometime in the near future -For COPD use steroids as prescribed -For pneumonia use Levaquin as prescribed -If you have worsening shortness of breath, fevers, chills go to the emergency room Discharge Attestations Time Spent in Discharge Care*: less than 30 min Quality Metrics Clinical Quality Measures During this hospital stay, did patient experience: None Coding Level of Care Code Acute [employer] for [facility] Fwd Diagnoses Acute respiratory failure with hypoxia J96.01 COPD (chronic obstructive pulmonary disease) J44.9 BPH (benign prostatic hyperplasia) N40.0 Hypertension I10 Atrial fibrillation I48.91 Congestive heart failure I50.9 Bilateral edema of lower extremity R60.0 Thrombocytopenia D69.6 Hyponatremia E87.1 Low blood pressure I95.9 Alcohol withdrawal F10.239
== END 2020-04-04 18:52 | disposition home or self-care (01) | DRG 291 ==
LOC: ER 14:50 → CSU 17:52
PROVIDERS: Admitting Provider Family Medicine; Emergency Provider Emergency Medicine; Visit Provider Family Medicine
DX: I11.0 Hypertensive heart disease with heart failure (principal); J18.9 Pneumonia, unspecified organism; J96.01 Acute respiratory failure with hypoxia; E87.1 Hypo-osmolality and hyponatremia; J44.1 Chronic obstructive pulmonary disease with (acute) exacerbation; J90 Pleural effusion, not elsewhere classified; J44.0 Chronic obstructive pulmonary disease with (acute) lower respiratory infection; I50.41 Acute combined systolic (congestive) and diastolic (congestive) heart failure; D69.6 Thrombocytopenia, unspecified; I48.91 Unspecified atrial fibrillation; N40.0 Benign prostatic hyperplasia without lower urinary tract symptoms; I95.9 Hypotension, unspecified; F17.210 Nicotine dependence, cigarettes, uncomplicated; Z79.01 Long term (current) use of anticoagulants; I27.20 Pulmonary hypertension, unspecified; Z79.82 Long term (current) use of aspirin; I71.2 Thoracic aortic aneurysm, without rupture
CPT/HCPCS: 12345; 32555; 36415; 36416; 71045; 71275; 76705; 80053; 80074; 80500; 81003; 82042; 82150; 82436; 82570; 82607; 82728; 82746; 82945; 82962; 83605; 83615; 83735; 83880; 83986; 84100; 84133; 84145; 84157; 84300; 84478; 84484; 84540; 85025; 85610; 85651; 85999; 86140; 87015; 87040; 87070; 87075; 87086; 87116; 87205; 87206; 87426; 87641; 87801; 87804; 88112; 88305; 89050; 90471; 90686; 93005; 93306; 94640; 96372; 96375; 97116; 97161; 99283; J0456; J0610; J0696; J1940; J2920; J3411; J7040; J7050; J7512; P9047; Q0144; Q9967

== ENCOUNTER 2020-05-08 13:33 | Outpatient (CLI) | payer OTHER, MEDICARE, SELFPAY ==
--- NOTE | 2020-05-08 13:38 | XRR_ITS ---
PROCEDURE INFORMATION: Exam: XR Chest, 2 Views Exam date and time: 05/08/2020 1:45 PM Age: 80 years old Clinical indication: Cardiovascular condition or disease; Congestive heart failure (chf); Cause unknown; Diastolic, chronic; Additional info: I50.33 - acute on chronic diastolic (congestive) heart failure TECHNIQUE: Imaging protocol: XR of the chest Views: 2 views. COMPARISON: CR XR chest 1V portable [id number] 04/04/2020 6:37 AM FINDINGS: Lungs: Emphysematous change , interstitial prominence, and asymmetric basilar airspace disease. Pleural space: Bilateral pleural effusions. Heart/Mediastinum: No cardiomegaly. Bones/joints: Osteopenia and degenerative change. XR/XR chest 2V* [id number] IMPRESSION: 1. Emphysematous change, interstitial prominence, and asymmetric basilar airspace disease. 2. Bilateral pleural effusions.
== END 2020-05-08 13:34 | disposition home or self-care (01) ==
PROVIDERS: PCP Family Medicine; Visit Provider Internal Medicine Cardiovascular Disease
DX: I50.33 Acute on chronic diastolic (congestive) heart failure (principal); J90 Pleural effusion, not elsewhere classified; D69.6 Thrombocytopenia, unspecified
CPT/HCPCS: 71046; 80048; 83735; 83880; 85025

== ENCOUNTER → 2020-06-07 16:44 | Outpatient (BNVA) | payer OTHER, MEDICARE, SELFPAY | PROVIDERS: PCP Family Medicine; Visit Provider Internal Medicine Cardiovascular Disease | DX: I50.33 Acute on chronic diastolic (congestive) heart failure (principal); D69.6 Thrombocytopenia, unspecified; I48.0 Paroxysmal atrial fibrillation; I10 Essential (primary) hypertension; I34.0 Nonrheumatic mitral (valve) insufficiency; I36.1 Nonrheumatic tricuspid (valve) insufficiency; I35.1 Nonrheumatic aortic (valve) insufficiency | CPT/HCPCS: 80048; 83735; 83880 ==

== ENCOUNTER → 2020-09-11 15:16 | Outpatient (BNVA) | payer OTHER, MEDICARE, SELFPAY | PROVIDERS: PCP Family Medicine; Visit Provider Internal Medicine Cardiovascular Disease | DX: I50.33 Acute on chronic diastolic (congestive) heart failure (principal); D69.6 Thrombocytopenia, unspecified; I48.0 Paroxysmal atrial fibrillation; I10 Essential (primary) hypertension | CPT/HCPCS: 80053; 83735; 83880; 85025 ==